=== PATIENT | female | born 1935 | race Caucasian/White ===

== ENCOUNTER 2017-12-14 10:05 | Emergency (ER) | payer OTHER ==
[~2017-12-14] VITALS: Ht 149.9 cm; Wt 61.7 kg
[~2017-12-14 10:05] MED LIST: FOSINOPRIL SODI10 MG PO; LIPITOR20 MG PO
[2017-12-14] MEDS ORDERED: COZAAR25 MG (10:56)
== END 2017-12-14 14:54 | disposition home or self-care (01) ==
LOC: ER 10:05
DX: K59.09 Other constipation (principal); M62.838 Other muscle spasm; M54.89 Other dorsalgia; M25.512 Pain in left shoulder; M79.622 Pain in left upper arm